=== PATIENT | male | born 1985 ===

== ENCOUNTER 2023-08-16 07:50 | Day surgery (SDC) | payer OTHER ==
[2023-08-14 10:30] LABS: HEMATOCRIT 45.8 % (39.0-48.0); HEMOGLOBIN 15.8 g/dL (13-16.00); MEAN CELL VOLUME 85.5 fL (80.0-100.00); MEAN CORPUSCULAR HEMOGLOBIN 29.5 pg (27.00-32.0); MEAN CORPUSCULAR HGB CONC 34.5 g/dl (32.0-36.0); PLATELET COUNT 250 K/uL (150-450); RED BLOOD COUNT 5.36 M/uL (4.00-6.00)
[2023-08-14 10:38] LABS: PH,URINE 5.5 (5.0-8.0); URINE APPEARANCE Clear; URINE BILIRRUBIN Negative (NEGATIVE); URINE BLOOD Negative; URINE COLOR Yellow; URINE GLUCOSE Negative (NEGATIVE); URINE LEUKOCYTE Negative; URINE NITRATE Negative; URINE PROTEIN Negative (NEGATIVE); URINE UROBILINOGEN 0.2 E.U./dl
[2023-08-14 10:42] LABS: URINE BACTERIA 8.8 uL (0.0-1933)
[2023-08-14 10:52] LABS: INR 0.98; PARTIAL THROMBOPLASTIN TIME 29.2 SECONDS (22.0-34.0); PROTHROMBIN TIME 10.3 SECONDS (9.0-11.5)
[2023-08-14 11:03] LABS: ALBUMIN 3.9 gm/dL (3.4-5.0); BILIRUBIN TOTAL 0.44 mg/dL (0.3-1.2); CALCIUM 9.6 mg/dL (8.5-10.1); CREATININE SERUM 1.27 mg/dL (0.70-1.30); GFR 62.81; GLOBULINA 4.1 G/DL (2.4-3.5); POTASSIUM 4.03 mEq/L (3.5-5.1); T4 FREE 1.05 NG/ML (0.76-1.46); TSH 3.51 uIU/mL (0.358-3.74)
[2023-08-14 11:21] LABS: URINE EPITHELIAL CELLS 0.9 uL (0.0-38.8); URINE WBC 0.9 uL (0.0-23.2)
[~2023-08-16 07:50] MED LIST: PEPCID40 MG PO; ZESTRIL10 M1
[2023-08-16] MEDS ORDERED: PERCOCET 5-3251 EACH PO (11:33)
== END 2023-08-16 14:45 | disposition home or self-care (01) ==
LOC: CIR.AMB 07:50
PROVIDERS: ATTEND Surgery
DX: C73 Malignant neoplasm of thyroid gland (principal); Z20.822 Contact with and (suspected) exposure to COVID-19; I10 Essential (primary) hypertension